=== PATIENT | male | born 1945 | race Caucasian/White ===

== ENCOUNTER → 2016-10-04 | Outpatient (CLI) | payer OTHER ==
[2015-09-21 08:53] VITALS: BP 118/79; PULSE 71
[~2016-10-04] MED LIST: ASPCH81X PO; BIMA0.01 OPB; BRIN1SUS OPB; CEPH500C2 PO; CLOTCRE33 TOP; DEXL60CA4 PO; FERR1TAB13 PO; HYDR-4330 PO; LCTX PO; NRN100 PO; PHEN-939 PO; PILO1SOL3 IO; POLY335019 PO; PSYL55.43 PO; SIMV40TA2 PO; TAMS0.4C38 PO; TIMO0.2528 OPL; ZOLP10TA6 PO
[2016-10-04 13:32] VITALS: BP 139/88; PULSE 77; TEMP 36.9; O2SAT 93
--- NOTE | 2016-10-04 18:11 | Radiation Oncology Follow-Up ---
Radiation Oncology Follow-Up Date of Visit Oct 04, 2016. Radiation Completion Date 03/12/13 Diagnosis (1) B-cell lymphoma Status: Resolved Onset Date: 12/01/2012 Permanent Comment: Pelvic pain Finding of soft tissue mass of the right pelvis, presacral region Status post fine-needle aspiration consistent with B-cell lymphoma Status post completion of radiation therapy 03/12/2013 received 4140 cGy Last Edited By: Eli Bagley on Sep 21, 2015 09:45 Interim History Mr. Boyer is a 71-year-old gentleman who presents with a B-cell lymphoma involving the presacral region treated with pelvic radiation therapy which completed in February 2013. The patient presents for follow-up evaluation. The patient continues to also follow with Dr. Edwin Teixeira. Currently, the patient is doing relatively well. He denies any significant urinary or rectal complaints. He has no issues otherwise. He states he will follow with Dr. Teixeira for 5 years and then plans to only follow with his primary care provider. Allergies Coded Allergies: Meloxicam (Unverified Allergy, Intermediate, PAIN IN STOMACH, 09/23/13) Uncoded Allergies: dockery (Adverse Reaction, Mild, GI SYMPTOMS, 02/10/13) Home Medications Scheduled Aspirin (Aspirin Chewable), 81 MG PO DAILY Bimatoprost (Lumigan), 1 DROP OPB HS Brinzolamide Oph (Azopt Oph), 1 DROP OPB TID Clotrimazole W/ Betamethasone (Lotrisone), 1 APPLN TOP BID Dexlansoprazole (Dexilant), 60 MG PO DAILYBB Ferrous Sulfate (Kp Ferrous Sulfate), 1 TAB PO DAILY Gabapentin (Gabapentin), 100 MG PO BID Pilocarpine Hcl (Isopto Carpine), 1 DROP IO QID Polyethylene Glycol 3350 (Miralax), 17 GM PO Q2D Psyllium (Metamucil Powder), 1 PACK PO DAILY Simvastatin (Zocor), 40 MG PO QPM Timolol Maleate 0.25% Oph (Timoptic 0.25% Oph), 1 DROP OPL DAILY Review of Systems Gastrointestinal: Symptoms: WNL Oral: Symptoms: No Problems Respiratory: Symptoms: WNL Other Respiratory: Just got over a cold Urinary: Symptoms: WNL Skin: Symptoms: No Problems Physical Exam Vital Signs Date Time Temp Pulse Resp B/P Pulse Ox O2 Delivery O2 Flow Rate FiO2 3/9/17 13:32 36.9 77 16 139/88 93 Pain: Side: Bilateral Patient Pain Scale: 0 - 10 Initial Pain Intensity: 0.0 General Appearance: WD/WN, no apparent distress Eyes: normal inspection ENT: normal ENT inspection, hearing grossly normal Neck: supple, no adenopathy Respiratory/Chest: chest non-tender, lungs clear, normal breath sounds, no respiratory distress Cardiovascular: regular rate, rhythm, no edema, no gallop, no JVD Abdomen: normal bowel sounds, non tender, soft, no organomegaly Extremities: normal range of motion, non-tender, normal inspection, no pedal edema Neurologic/Psychiatric: alert, oriented x 3 Skin: normal color, warm/dry, no rash Additional Studies EXAM EXAM: CT ABDOMEN /PELVIS WITHOUT IV CONTRAST WITHOUT ORAL DATE and TIME: 09/19/2016 10:46 am HISTORY CLINICAL INFORMATION: Urteral stone TECHNIQUE Multiple axial images are acquired of the abdomen and pelvis. Coronal and Sagittal reformats are provided. Oral Contrast: No oral contrast was administered. IV Contrast: No IV contrast was administered. Absence of intravenous contrast limits evaluation of visceral structures, vasculature, and other processes. COMPARISON PET-CT dated 12/24/2012. CT abdomen/pelvis dated 08/07/2012. FINDINGS LINES AND DEVICES: None. LOWER CHEST: HEART(visualized): Coronary artery calcification. LUNG BASES: Unremarkable. ABDOMEN/PELVIS: LIVER: Unremarkable. BILE DUCTS: Unremarkable. GALLBLADDER: Unremarkable. PANCREAS: Unremarkable. SPLEEN: Unremarkable. ADRENALS: Unremarkable. KIDNEYS/URETERS: - Right mid ureter 7 mm calculus without evidence of hydronephrosis. - Multiple bilateral nonobstructing renal calculi, largest 2 on the right measuring 5 mm. - 16 mm left renal cyst not significantly changed since 07/2012. BLADDER: Collapsed, thus limiting evaluation. BOWEL: Normal caliber. Appendix is within normal limits. LYMPH NODES: No pathologic morphology or enlargement. VESSELS: Atherosclerosis. REPRODUCTIVE ORGANS: Coarse prostatic calcifications. PERITONEUM/RETROPERITONEUM: Near complete resolution of previously noted right presacral soft tissue stranding in comparison to CT from August 07, 2012. ABDOMINAL WALL/SOFT TISSUES: Small bilateral fat containing inguinal hernias. BONES: Bilateral L5 pars defects with associated grade 1 anterolisthesis of L5 on S1. Multilevel degenerative changes of the visualized lumbar spine. IMPRESSION 1. Right mid ureteral stone measuring 7 mm. No evidence of hydronephrosis. 2. Multiple bilateral nonobstructing renal calculi Assessment & Plan Mr. Boyer is a 71-year-old gentleman with a B-cell lymphoma involving the presacral region treated with radiation therapy in February 2013. The patient presents for follow-up evaluation. Overall he is doing relatively well. He has no radiographic evidence of recurrence. He has no evidence of constitutional be symptoms. We are happy with his progress. He will continue to follow up with Dr. Teixeira. We will defer imaging studies to Dr. Teixeira. We would like to see him back in one more time for follow-up evaluation in one year. The patient was encouraged to call us with any questions or concerns or if he wanted to be seen earlier. Total Time In Follow-Up I spent 20 minutes examining and counseling the patient. I spent 15 minutes completing this note. Copy To Collin Crockett M.D.; Edwin Teixeira M.D.
== END | disposition home or self-care (01) ==
LOC: C.ONC 13:15
PROVIDERS: ATTEND Physician Assistant Medical
DX: Z08 Encounter for follow-up examination after completed treatment for malignant neoplasm (principal); Z92.3 Personal history of irradiation; Z85.72 Personal history of non-Hodgkin lymphomas

== ENCOUNTER 2016-10-25 10:19 | Inpatient (IN) | payer OTHER ==
[~2016-10-25] VITALS: Ht 172.7 cm; Wt 90.9 kg
[~2016-10-25 10:19] MED LIST changes: -CEPH500C2 PO; -HYDR-4330 PO; -LCTX PO; -PHEN-939 PO; -TAMS0.4C38 PO; -ZOLP10TA6 PO
[2016-10-25 12:27] VITALS: BP 142/75; PULSE 116; TEMP 36.8; O2SAT 94
[2016-10-25] MEDS ORDERED: ONDANSETRON INJ 2 MG/ML 2 ML VIAL IV PRN (12:30)
[2016-10-25] MEDS ORDERED: ACETAMINOPHEN 325 MG TAB PO PRN (12:30)
[2016-10-25 13:05] LABS: HEMATOCRIT 37.9 % (42-52); MEAN CELL VOLUME 85.7 fL (80-100); MEAN CORPUSCULAR HEMOGLOBIN 28.5 pg (25-34); MEAN CORPUSCULAR HGB CONC 33.2 g/dl (32-36); MEAN PLATELET VOLUME 9.3 fL (7.4-10.4); PLATELET COUNT 227 K/uL (130-400); RED BLOOD COUNT 4.42 M/uL (4.7-6.1); WHITE BLOOD COUNT 14.22 K/uL (4.8-10.8)
[2016-10-25] MEDS ORDERED: CEFTRIAXONE SOD INJ 2,000 MG in DEXTROSE 5% 50ML 50 ML IV SCH (13:30)
[2016-10-25] MEDS ORDERED: PIPERACILL/TAZOBAC CONSULT ACTIVE PRN (13:34)
[2016-10-25 13:37] VITALS: BP 142/75; PULSE 116; TEMP 36.8; Ht 172.7 cm; Wt 90.9 kg
[2016-10-25] MEDS ORDERED: HYDR-4330 PO (13:39)
[2016-10-25] MEDS ORDERED: PHEN-939 PO (13:39)
[2016-10-25] MEDS ORDERED: TAMS0.4C38 PO (13:39)
[2016-10-25 13:41] LABS: BLOOD UREA NITROGEN 13 mg/dl (7-18); BUN/CREATININE RATIO 10.8 (10-20); CALCIUM 8.6 mg/dl (8.5-10.1); CARBON DIOXIDE 28 mmol/L (21-32); CHLORIDE 103 mmol/L (98-107); GLUCOSE 125 mg/dl (70-99); POTASSIUM 3.9 mmol/L (3.5-5.1); SODIUM 139 mmol/L (136-145)
[2016-10-25] MEDS ORDERED: PATIENT'S HEIGHT AND/OR WEIGHT NEEDED SCH (13:45)
[2016-10-25] MEDS ORDERED: PHENAZOPYRIDINE HCL 100 MG TAB PO PRN (13:45)
[2016-10-25] MEDS ORDERED: POLYETHYLENE (MIRALAX) 17 GM PACK PO PRN (13:45)
--- NOTE | 2016-10-25 14:03 | Progress Note ---
Progress Note Date of Service Oct 25, 2016. Progress Note ATTENDING ADDENDUM care coordinated with LIUDMILA Blandon please refer to her notes for full details, I agree with her notes patient seen and examined, records reviewed by myself as well on exam, patient seen in good spirits, pleasant states he feels hungry denies chill, back pain, dysuria, abdominal pain, nausea/vomiting, hematuria denies chest pain, dyspnea, dizziness, palpitations no other symptoms VS noted and reviewed oriented x 3 , not in distress, speaks in sentences with no effort nor accessory muscle use normal rate, regular rhythm, no murmurs clear breath sounds bilaterally non distended, soft, nontender, no CVA tenderness no bipedal edema, erythema, warmth no neuro deficits WBC 14.2 Lactic acid 1.3 ASSESSMENT/PLAN> 71 year old male with history of ureteral calculus s/p Stent Placement 6 days ago, Non hodgkin's Lymphoma in Remission, presenting with positive urine and blood cultures drawn from [facility] yesterday. GRAM NEGATIVE SAM BACTEREMIA E COLI UTI IN THE SETTING OF RECENT URETERAL STENT PLACEMENT - meets criteria for sepsis lactic acid normal, normotensive - ff up cultures drawn from [facility] 10/24/16 repeat cultures during this admission - IV fluids empiric Zosyn IV for now - Urology consult HISTORY OF NON HODGKIN'S LYMPHOMA - in remission follows with Dr. Teixeira other diagnoses and plan of care as per LIUDMILA Blandon's notes Darien Jacinto MD
--- NOTE | 2016-10-25 14:17 | History and Physical ---
History & Physical Date & Time of Service: Oct 25, 2016 at 13:52 Chief Complaint: Blood Infection Primary Care Physician: Collin Crockett M.D. History of Present Illness 71 year old male referred to the hospital for direct admission by Dr. Herrmann from urology for bacteremia. On 10/19, patient underwent cystoscopy, lithotripsy , and right ureteral stent placement. Last evening patient developed chills and rigors. He was seen at [facility] where he found to be febrile and U/A consistent with UTI. He was given a dose of IV Rocephin and discharged home with a prescription for Keflex. Patient received a call this morning that he had an infection in his blood and needed to go to the hospital. Patient reports feeling significantly better since last evening. He still has some chills but rigors have resolved. He reports burning with urination. He had hematuria after his procedure last week however urine has cleared. He denies flank pain. No abdominal pain, nausea, vomiting, or diarrhea. He denies chest pain and shortness of breath. No lightheadedness, dizziness, diaphoresis, or syncopal events. At the time of my exam, patient is resting in bed in no acute distress. Past Medical/Surgical History Medical Problems: (1) B-cell lymphoma Permanent Comment: Pelvic pain Finding of soft tissue mass of the right pelvis, presacral region Status post fine-needle aspiration consistent with B-cell lymphoma Status post completion of radiation therapy 03/12/2013 received 4140 cGy Status: Resolved (2) Dyslipidemia Status: Chronic (3) GERD (gastroesophageal reflux disease) Status: Chronic (4) Renal calculi Status: Chronic Surgical Problems: (1) History of cataract surgery Status: Chronic Family History FH: CAD (coronary artery disease) FATHER ( in his 40s from [place]) MOTHER ( in her 60s from [place]) Social History Smoking Status: Former Smoker Alcohol Use: none Immunizations History of Influenza Vaccine: Yes Influenza Vaccine Date: Apr 19, 2016 History of Tetanus Vaccine?: Yes Tetanus Immunization Date: Jan 25, 2016 History of Pneumococcal: Yes Pneumococcal Date: Jun 10, 2015 Allergies Coded Allergies: Meloxicam (Unverified Allergy, Intermediate, PAIN IN STOMACH, 09/23/13) Uncoded Allergies: dockery (Adverse Reaction, Mild, GI SYMPTOMS, 02/10/13) Home Medications Scheduled Aspirin (Aspirin Chewable), 81 MG PO DAILY Bimatoprost (Lumigan), 1 DROP OPB HS Brinzolamide Oph (Azopt Oph), 1 DROP OPB TID Dexlansoprazole (Dexilant), 60 MG PO DAILYBB Ferrous Sulfate (Kp Ferrous Sulfate), 1 TAB PO DAILY Gabapentin (Gabapentin), 100 MG PO TID Pilocarpine Hcl (Isopto Carpine), 1 DROP IO QID Psyllium (Metamucil Powder), 1 PACK PO DAILY Simvastatin (Zocor), 40 MG PO QPM Tamsulosin Hcl (Flomax), 0.4 MG PO DAILY Timolol Maleate 0.25% Oph (Timoptic 0.25% Oph), 1 DROP OPL DAILY Scheduled PRN Clotrimazole W/ Betamethasone (Lotrisone), 1 APPLN TOP BID PRN for Itching Hydrocodone-Acetaminophen (Lortab 5-325 mg), 1 TAB PO Q6H PRN for Pain Phenazopyridine Hcl (Pyridium), 1 TAB PO TID PRN for Pain Polyethylene Glycol 3350 (Miralax), 17 GM PO DAILY PRN for Constipation Review of Systems 10 point review of systems was completed with the pertinent positives and negatives noted per the HPI Physical Exam Vital Signs Date Time Temp Pulse Resp B/P Pulse Ox O2 Delivery O2 Flow Rate FiO2 10/25/16 13:37 36.8 116 20 142/75 Room Air 10/25/16 12:27 36.8 116 20 142/75 94 Room Air General Appearance: no apparent distress Head: normocephalic Eyes: normal inspection ENT: hearing grossly normal Neck: supple, no JVD Respiratory/Chest: lungs clear, normal breath sounds, no respiratory distress Cardiovascular: regular rate, rhythm, no edema, normal peripheral pulses Abdomen/GI: normal bowel sounds, non tender, soft Back: no CVA tenderness Extremities/Musculoskelatal: normal inspection, no calf tenderness Neurologic/Psych: no motor/sensory deficits, alert, normal mood/affect, oriented x 3 Skin: normal color, warm/dry Diagnostics Laboratory Results Results Past 24 Hours Test 10/25/16 12:22 10/25/16 12:53 Range/Units White Blood Count 14.22 4.8-10.8 K/uL Red Blood Count 4.42 4.7-6.1 M/uL Hemoglobin 12.6 14.0-18.0 g/dL Hematocrit 37.9 42-52 % Mean Corpuscular Volume 85.7 80-100 fL Mean Corpuscular Hemoglobin 28.5 25-34 pg Mean Corpuscular Hemoglobin Concent 33.2 32-36 g/dl RDW Standard Deviation 47.2 36.4-46.3 fL RDW Coefficient of Variation 14.9 11.5-14.5 % Platelet Count 227 130-400 K/uL Mean Platelet Volume 9.3 7.4-10.4 fL Sodium Level 139 136-145 mmol/L Potassium Level 3.9 3.5-5.1 mmol/L Chloride Level 103 98-107 mmol/L Carbon Dioxide Level 28 21-32 mmol/L Anion Gap 8.0 3-11 mmol/L Blood Urea Nitrogen 13 7-18 mg/dl Creatinine 1.20 0.60-1.40 mg/dl Estimated GFR () 69.6 Estimated GFR (Non- 60.1 BUN/Creatinine Ratio 10.8 10-20 Random Glucose 125 70-99 mg/dl Lactic Acid Level 1.3 0.4-2.0 mmol/L Calcium Level 8.6 8.5-10.1 mg/dl Microbiology Results 10/25/16 Blood Culture, Received Pending 10/25/16 Blood Culture, Received Pending 10/25/16 Urine Culture, Ordered Pending Impression Assessment and Plan SEPSIS DUE TO GRAM NEGATIVE BACTEREMIA - directly admitted to med/surg - patient underwent cystoscopy, lithotripsy, and right ureteral stent placement on 10/19 for renal calculi; developed chills and rigors last night, went to [facility] ER and was febrile, was given IV Rocephin and discharged home with prescription for Keflex. Blood cultures positive today for gram negative rods and urine culture growing E. Coli (no sensitivities) - I spoke with the micro lab at [facility] who are to fax cultures once finalized - today patient is tachycardic with WBC 14K; afebrile, BP stable, lactic acid normal - will place on Zosyn and adjust per final culture results - IVF - redraw blood and urine cultures - urology and infectious disease consults HLD - continue statin GERD - continue PPI DVT PROPHYLAXIS - SCDs in the event patient needs an invasive procedure CODE STATUS - Patient is a full code as per my discussion with him. DISPO - In my clinical judgment this beneficiary meets acute admission criteria, established by [facility], that includes being hospitalized through two midnights. Advanced Directives Existing Living Will: Yes Existing Power of Cad Administrator: Yes VTE Prophylaxis VTE Risk Assessment Done? Y/N: Yes Risk Level: Moderate
[2016-10-25] MEDS: GABAPENTIN 100 MG CAP PO SCH ×2 (14:29→22:47)
[2016-10-25] MEDS: SODIUM CHLORIDE 0.9% 1000ML 1,000 ML IV SCH ×2 (14:30→22:44)
[2016-10-25] MEDS ORDERED: PIPERACILL/TAZOBAC IV 3.375 GM in DEXTROSE 5% 100ML IV ONE (15:00)
--- NOTE | 2016-10-25 15:24 | Progress Note ---
Progress Note Date of Service Oct 25, 2016. Progress Note ID Consult Dictated #[id number] A/P: 1. Bacteremia/uti 2. Leukocytosis -Continue zosyn, await cultures -will follow, thank you
--- NOTE | 2016-10-25 16:00 | INFECT. DISEASE CONSULTATION ---
DATE OF CONSULTATION: 10/25/2016 REQUESTING PHYSICIAN: Rafael Mary MD HISTORY OF PRESENT ILLNESS: This is a 71-year-old gentleman who was admitted for direct admission by urology after he was noted to have positive cultures at an outside facility. He had undergone cystoscopy, lithotripsy, and a ureteral stent placement at [facility] on October 19. He had tolerated this procedure well; however, one day ago, he developed acute onset of chills and rigors. He went to [facility] Emergency Room. He was found reportedly to have fever and a positive UA. He was given a 1 time dose of Rocephin and discharged from the Emergency Room on oral Keflex. He did receive a call this morning he states from his urologist that blood cultures obtained in the Emergency Room at [facility] were in fact positive and he was instructed to go to the hospital. He did present here as this was per his urologist. He states he was planning to have his stent removed tomorrow. He was placed empirically on antibiotics and repeat urine and blood cultures are pending. He is currently on Zosyn and is tolerating this well. He has not had any documented fevers. He states overall he is feeling significantly better compared to yesterday and has not had any episodes of chills or rigors since hospitalization here; however, he states he does feel cold. He denies any chest pain, cough, shortness of breath, nausea, vomiting, diarrhea or abdominal pain. He has no back pain. He has no urinary complaints. He is eating lunch on my exam. All remaining review of systems is reviewed and is negative except what is noted above. PAST MEDICAL HISTORY: Significant for B cell lymphoma status post radiation, dyslipidemia, GERD, and renal calculi. PAST SURGICAL HISTORY: Significant for cataract surgery and recent cystoscopy and stent placement on October 19. FAMILY HISTORY: Noncontributory. SOCIAL HISTORY: Significant for a history of tobacco use. ALLERGIES: INCLUDE MELOXICAM. CURRENT MEDICATIONS: Include aspirin, Metamucil, Flomax, eyedrops, iron, Protonix, Zocor, Zosyn, Neurontin, Pyridium, MiraLax, Tylenol and Zofran. PHYSICAL EXAMINATION: VITAL SIGNS: He is afebrile, pulse 116, respiratory rate 20, blood pressure 142/75, and oxygen saturation is 94% on room air. GENERAL: He is awake, alert and oriented x3. He is in no acute distress. HEENT: Mucous membranes are moist. Extraocular muscles are intact. HEART: Regular. LUNGS: Clear. ABDOMEN: Soft, nontender, and nondistended. There is no back tenderness. EXTREMITIES: Lower extremities are without edema. SKIN: Without rash. LABORATORY STUDIES: CBC today reveals a white blood cell count of 14.2, hemoglobin 12.6, and platelets are 227. Chemistry panel reveals sodium of 139, potassium 3.9, chloride 103, bicarbonate 28, BUN 13, creatinine 1.2, and glucose is 125. Lactic acid is 1.3. Urinalysis is pending. Blood and urine cultures are pending. There is no imaging to review. ASSESSMENT AND PLAN: Bacteremia, likely secondary to recent lithotripsy and stent placement. He will remain on Zosyn therapy pending the results of blood cultures done both at [facility] and here as well. UA and urine culture are pending. Urology will be consulted. We will follow along with you. Thank you for this consultation.
[2016-10-25] MEDS: BRINZOLAMIDE (AZOPT) OPS 10 ML BTL OPB SCH ×2 (16:13→22:48)
[2016-10-25 17:02] VITALS: BP 147/80; PULSE 123; TEMP 37.4; O2SAT 92
[2016-10-25] MEDS: PILOCARPINE HCL 1% OP SOLN 15 ML BTL OPR SCH ×2 (18:35→22:49)
[2016-10-25 19:01] LABS: MANUAL MICROSCOPIC REQUIRED? NO; REVIEW REQ? NO; URINE APPEARANCE CLOUDY (CLEAR); URINE BILIRUBIN NEG (NEG); URINE COLOR YELLOW; URINE EPITHELIAL CELL AUTO >30 /lpf (0-5); URINE NITRITE NEG (NEG); URINE PH >= 9.0 (4.5-7.5); URINE SPECIFIC GRAVITY 1.017 (1.000-1.030); UROBILINOGEN NEG (NEG)
[2016-10-25 19:03] LABS: SULFASALICYLIC ACID POS (NEG)
--- NOTE | 2016-10-25 20:14 | Urology Consultation ---
History General Date of Service: Oct 25, 2016. Chief Complaint: uti with bacteremia Primary Care Physician: Collin Crockett M.D. Pt seen a urologist before?: Yes If yes, why?: stones History of Present Illness I am asked by Susana Blandon PA-C to evaluate and treat patient for uti with bacteremia. He is POD # 6 s/p a seemingly uneventful right ureteroscopy laser lithotripsy basket stone extraction and stent placement. He had initially an uneventful recovery. His pre-op urine and intra-op findings were not suggestive of urine infection. He developed sudden rigors and profound weakness yesterday. He was treated and released from [facility] ER last night. There he had fever leukocytosis, tachycardia, and a dirty urine. he was given 1 g rocephin and sent home. His blood and urine cultures returned + for e coli this am and we then routed him here for direct admission. He has been feeling a bit better since rocephin and much better since the additional iv fluids and zosyn today. He has some mild dysuria now but no specific flank pain. He feels like he is emptying fine. He still feels very weak. Laboratory Results Past 24 Hours Test 10/25/16 12:53 10/25/16 18:35 Range/Units White Blood Count 14.22 4.8-10.8 K/uL Red Blood Count 4.42 4.7-6.1 M/uL Hemoglobin 12.6 14.0-18.0 g/dL Hematocrit 37.9 42-52 % Mean Corpuscular Volume 85.7 80-100 fL Mean Corpuscular Hemoglobin 28.5 25-34 pg Mean Corpuscular Hemoglobin Concent 33.2 32-36 g/dl RDW Standard Deviation 47.2 36.4-46.3 fL RDW Coefficient of Variation 14.9 11.5-14.5 % Platelet Count 227 130-400 K/uL Mean Platelet Volume 9.3 7.4-10.4 fL Sodium Level 139 136-145 mmol/L Potassium Level 3.9 3.5-5.1 mmol/L Chloride Level 103 98-107 mmol/L Carbon Dioxide Level 28 21-32 mmol/L Anion Gap 8.0 3-11 mmol/L Blood Urea Nitrogen 13 7-18 mg/dl Creatinine 1.20 0.60-1.40 mg/dl Estimated GFR () 69.6 Estimated GFR (Non- 60.1 BUN/Creatinine Ratio 10.8 10-20 Random Glucose 125 70-99 mg/dl Lactic Acid Level 1.3 0.4-2.0 mmol/L Calcium Level 8.6 8.5-10.1 mg/dl Urine Color YELLOW Urine Appearance CLOUDY CLEAR Urine pH >= 9.0 4.5-7.5 Urine Specific [place] 1.017 1.000-1.030 Urine Protein 2+ NEG Urine Glucose (UA) NEG NEG Urine Ketones NEG NEG Urine Occult Blood 3+ NEG Urine Nitrite NEG NEG Urine Bilirubin NEG NEG Urine Urobilinogen NEG NEG Urine Leukocyte Esterase SMALL NEG Urine WBC (Auto) >30 0-5 /hpf Urine RBC (Auto) >30 0-4 /hpf Urine Hyaline Casts (Auto) 1-5 0-5 /lpf Urine Epithelial Cells (Auto) >30 0-5 /lpf Urine Bacteria (Auto) NEG NEG Microbiology Results 10/25/16 Blood Culture, Received Pending 10/25/16 Blood Culture, Received Pending 10/25/16 Urine Culture, Received Pending Labs were reviewed and are within normal limits unless listed below. Labs are available in the chart and at [facility] Past History cancer - lymphoma, other (lymphoma) Family History FH: CAD (coronary artery disease) FATHER ( in his 40s from [place]) MOTHER ( in her 60s from [place]) Social History Hx Tobacco Use In Past Year?: No Smoking: quit greater than 1 year Housing status: lives with family Immunizations History of Influenza Vaccine: Yes Influenza Vaccine Date: Apr 19, 2016 History of Tetanus Vaccine?: Yes Tetanus Immunization Date: Jan 25, 2016 History of Pneumococcal: Yes Pneumococcal Date: Jun 10, 2015 Allergies Coded Allergies: Meloxicam (Unverified Allergy, Intermediate, PAIN IN STOMACH, 09/23/13) Uncoded Allergies: dockery (Adverse Reaction, Mild, GI SYMPTOMS, 02/10/13) Medications Home Medications: Home Meds and Scripts Medications Dose Route/Sig Max Daily Dose Days Date Category Lortab 5-325 mg (Hydrocodone-Acetaminophen) 1 Tab Tab 1 Tab PO Q6H PRN 10/25/16 Reported Flomax (Tamsulosin Hcl) 0.4 Mg Cap 0.4 Mg PO DAILY 10/25/16 Reported Pyridium (Phenazopyridine Hcl) 100 Mg Tab 1 Tab PO TID PRN 3 10/25/16 Reported Lotrisone (Clotrimazole W/ Betamethasone) 1 Cre Cre 1 Appln TOP BID PRN 7 10/04/16 Reported Isopto Carpine (Pilocarpine Hcl) 1 % Brinda 1 Drop IO QID 10/04/16 Reported Kp Ferrous Sulfate (Ferrous Sulfate) 325 Mg Tab 1 Tab PO DAILY 30 10/04/16 Reported Dexilant (Dexlansoprazole) 60 Mg Cap 60 Mg PO DAILYBB 09/21/15 Reported Miralax (Polyethylene Glycol 3350) 1 Pow Pow 17 Gm PO DAILY PRN 09/21/15 Reported Metamucil Powder (Psyllium Hydrophilic Mucilloid) Powd 1 Pack PO DAILY 09/21/15 Reported Gabapentin 100 Mg Cap 100 Mg PO TID 09/21/15 Reported Lumigan (Bimatoprost) 0.01 % Brinda 1 Drop OPB HS 01/22/13 Reported Aspirin Chewable (Aspirin) 81 Mg Chew 81 Mg PO DAILY 01/22/13 Reported Azopt Oph (Brinzolamide) 1 % Delia 1 Drop OPB TID 01/22/13 Reported Zocor (Simvastatin) 40 Mg Tab 40 Mg PO QPM 01/22/13 Reported Timoptic 0.25% Oph (Timolol Maleate) Soln 1 Drop OPL DAILY 01/22/13 Reported Inpatient Medications: Current Inpatient Medications Medications (Trade) Dose Ordered Sig/Jaimie Route Start Time Stop Time Status Last Admin Dose Admin Acetaminophen (Tylenol Tab) 650 mg Q4H PRN PO 10/25/16 12:30 11/24/16 12:29 Ondansetron HCl (Zofran Inj) 4 mg Q6H PRN IV 10/25/16 12:30 11/24/16 12:29 Piperacillin Sod/ Tazobactam Sod 1 ea 1 ea UD PRN N/A 10/25/16 13:34 11/24/16 13:33 Sodium Chloride (Nss 1000ml) 1,000 ml @ 125 mls/hr Q8H IV 10/25/16 13:30 11/24/16 13:29 10/25/16 14:30 125 MLS/HR Aspirin (Ecotrin Tab) 81 mg DAILY PO 10/26/16 09:00 11/25/16 08:59 Brinzolamide (Azopt) 1 drops TID OPB 10/25/16 14:45 11/24/16 14:44 10/25/16 16:13 1 DROPS Gabapentin (Neurontin Cap) 100 mg TID PO 10/25/16 14:00 11/24/16 13:59 10/25/16 14:29 100 MG Phenazopyridine HCl (Pyridium Tab) 100 mg TID PRN PO 10/25/16 13:45 11/24/16 13:44 Pilocarpine HCl (Isopto Carpine 1% Oph Soln) 1 drops QID OPR 10/25/16 17:00 11/24/16 16:59 10/25/16 18:35 1 DROPS Psyllium Hydrophilic Mucilloid (Metamucil Powder) 1 pkt DAILY PO 10/26/16 09:00 11/25/16 08:59 Simvastatin (Zocor Tab) 40 mg QPM PO 10/25/16 21:00 11/24/16 20:59 Tamsulosin HCl (Flomax Cap) 0.4 mg DAILY PO 10/26/16 09:00 11/25/16 08:59 Timolol Maleate (Timoptic 0.25% Oph Soln) 1 drops DAILY OPL 10/26/16 09:00 11/25/16 08:59 Bimatoprost (Lumigan 0.01%) 1 drops HS OPB 10/25/16 21:00 11/24/16 20:59 Pantoprazole Sodium (Protonix Tab) 40 mg DAILYBB PO 10/26/16 06:30 11/25/16 06:29 Ferrous Sulfate (Feosol Tab) 325 mg DAILY PO 10/26/16 09:00 11/25/16 08:59 Polyethylene 17 gm 17 gm DAILY PRN PO 10/25/16 13:45 11/24/16 13:44 Piperacillin Sod/ Tazobactam Sod/ Dextrose (Zosyn Iv/D5 100ml) 115 ml @ 28.75 mls/ hr Q8H IV 10/25/16 20:00 11/08/16 19:59 Review of Systems Review of Systems Constitutional: + chills, + fever Neurological: + dizzy Endocrine: + tired/sluggish, + too cold Gastrointestinal: + nausea Cardiovascular: No chest pain, No palpitations Respiratory: No chronic cough, No shortness of breath Male : + frequent urination, + infections, + kidney stones, + nocturia more than once/night, + painful urination Physical Exam Vital Signs: Vital Signs Past 12 Hours Date Time Temp Pulse Resp B/P Pulse Ox O2 Delivery O2 Flow Rate FiO2 10/25/16 17:02 37.4 123 20 147/80 92 Room Air 10/25/16 13:37 36.8 116 20 142/75 Room Air 10/25/16 12:27 36.8 116 20 142/75 94 Room Air Physical Exam: General Appearance: WD/WN, no apparent distress, + obese Eyes: bilateral eyes normal inspection ENT: hearing grossly normal Neck: no adenopathy Respiratory/Chest: normal breath sounds, no respiratory distress, no accessory muscle use Extremities: non-tender, normal inspection, no pedal edema, no calf tenderness Neurologic/Psychiatric: alert, normal mood/affect, oriented x 3 Skin: normal color, warm/dry, no rash Assessment & Plan Assessment & Plan uti with bacteremia seems to be responding nicely to antibiotics does not appear toxic. Await culture results from ADAM Brennan then tailor antibiotics. Will plan to remove stent just prior to discharge this weekend. Will do at bedside, no need for fasting. I suspect he has a post-op infection from the instrumentation as I do not believe his urine was infected pre-op or intra-op.
[2016-10-25] MEDS: PIPERACILL/TAZOBAC IV 3.375 GM in DEXTROSE 5% 100ML IV SCH (22:43)
[2016-10-25] MEDS: BIMATOPROST 0.01% OP SOLN 2.5 ML BTL OPB SCH (22:48)
[2016-10-25] MEDS: SIMVASTATIN 40 MG TAB PO SCH (22:49)
[2016-10-25 23:23] VITALS: BP 159/87; PULSE 117; TEMP 37.6; O2SAT 92
[2016-10-26] MEDS: PIPERACILL/TAZOBAC IV 3.375 GM in DEXTROSE 5% 100ML IV SCH (05:11)
[2016-10-26] MEDS: SODIUM CHLORIDE 0.9% 1000ML 1,000 ML IV SCH ×3 (05:11→21:52)
[2016-10-26 06:17] LABS: HEMATOCRIT 35.9 % (42-52); MEAN CELL VOLUME 86.1 fL (80-100); MEAN CORPUSCULAR HEMOGLOBIN 28.3 pg (25-34); MEAN CORPUSCULAR HGB CONC 32.9 g/dl (32-36); MEAN PLATELET VOLUME 9.6 fL (7.4-10.4); PLATELET COUNT 209 K/uL (130-400); RED BLOOD COUNT 4.17 M/uL (4.7-6.1); WHITE BLOOD COUNT 12.31 K/uL (4.8-10.8)
[2016-10-26] MEDS: PANTOprazole SOD 40 MG TAB PO SCH (06:24)
[2016-10-26 06:54] LABS: BUN/CREATININE RATIO 8.8 (10-20); CREATININE 1.2 mg/dl (0.60-1.40); POTASSIUM 3.8 mmol/L (3.5-5.1)
--- NOTE | 2016-10-26 07:26 | Clinical Documentation Query ---
CLINICAL DOCUMENTATION QUERY Dr. BLANK, In your clinical opinion is this patient being managed for: ( ) Sepsis/ UTI due to recent lithotripsy and ureteral stent placement ( ) Other explanation of clinical findings (Please Explain) ( ) Unable to determine (Please Define) ( ) Need to Discuss ( ) Not Agree The medical record reflects the following clinical findings, treatment, and risk factors. Clinical Indicators:71 yo male presenting with sepsis from E coli UTI. ID consult suggests that this is likely secondary to recent lithotripsy and ureteral stent. Urology consult indicates the pt's urine was not infected preop or intraop Treatment: plan for stent removal, IV zosyn, urology and ID consults, IV fluids Risk Factors: recent lithotripsy and stent placement Please clarify and document your clinical opinion in the progress notes and discharge summary. Terms such as "probable", "suspected", "likely", "questionable", "possible", or "still to be ruled out" are acceptable. IF IN AGREEMENT, YOU MUST DOCUMENT ABOVE DIAGNOSTIC STATEMENT IN DAILY PROGRESS NOTES AND DISCHARGE SUMMARY. This document is not part of the patient's record. Thank You, Eneida Jiménez RN [phone]
[2016-10-26] MEDS: GABAPENTIN 100 MG CAP PO SCH ×3 (08:10→21:53)
[2016-10-26] MEDS: FERROUS SULFATE 325 MG TAB PO SCH (08:10)
[2016-10-26] MEDS: TAMSULOSIN HCL 0.4 MG CAP PO SCH (08:10)
[2016-10-26] MEDS: PSYLLIUM 58.6% PWD PACK S\\F PO SCH (08:11)
[2016-10-26] MEDS: TIMOLOL MALEATE 0.25% OP SOLN 5 ML BTL OPL SCH (08:11)
[2016-10-26] MEDS: ASPIRIN 81 MG ECTAB PO SCH (08:11)
[2016-10-26] MEDS: BRINZOLAMIDE (AZOPT) OPS 10 ML BTL OPB SCH ×3 (08:11→21:53)
[2016-10-26] MEDS: PILOCARPINE HCL 1% OP SOLN 15 ML BTL OPR SCH ×4 (08:12→21:53)
[2016-10-26 08:27] VITALS: BP 118/82; PULSE 102; TEMP 37; O2SAT 92
[2016-10-26 09:48] VITALS: O2SAT 92
--- NOTE | 2016-10-26 11:33 | Progress Note ---
Subjective Date of Service: Oct 26, 2016. Subjective Pt evaluation today including: conversation w/ patient, physical exam, chart review, lab review pt seen in follow up, resting comfortably. no complaints. no fevers, denies any additional episodes of chills/rigors. no abd pain, no gu complaints. blood and urine cultures pending. UA with > 30 wbc and no missy. Did receive a one time dose of ctx at [facility]. tolerating zosyn, tmax 37.6, asymptomatic. Received call from pharmacy, [facility] pt with culture at [facility] is urias sensitive E. coli, requesting change in abx. Pt was seen by urology, will have stent removal done at bedside prior to d/c. All remaining ros reviewed and are negative. wbc improving, 12 today. Objective Vital Signs Date Time Temp Pulse Resp B/P Pulse Ox O2 Delivery O2 Flow Rate FiO2 10/26/16 09:48 92 Room Air 10/26/16 08:27 37.0 102 16 118/82 92 Room Air 10/26/16 08:00 Room Air 10/26/16 00:00 Room Air 10/25/16 23:23 37.6 117 20 159/87 92 Room Air 10/25/16 17:02 37.4 123 20 147/80 92 Room Air 10/25/16 16:00 Room Air 10/25/16 13:37 36.8 116 20 142/75 Room Air 10/25/16 12:27 36.8 116 20 142/75 94 Room Air Physical Exam General Appearance: WD/WN, no apparent distress Eyes: normal inspection Neck: supple Respiratory/Chest: lungs clear, normal breath sounds, no respiratory distress Cardiovascular: regular rate, rhythm, no edema Abdomen: non tender, soft Extremities: non-tender, normal inspection, no pedal edema, no calf tenderness Neurologic/Psychiatric: alert, oriented x 3 Skin: normal color Laboratory Results Last 24 Hours Test 10/25/16 12:53 10/25/16 18:35 10/26/16 05:35 White Blood Count 14.22 K/uL 12.31 K/uL Red Blood Count 4.42 M/uL 4.17 M/uL Hemoglobin 12.6 g/dL 11.8 g/dL Hematocrit 37.9 % 35.9 % Mean Corpuscular Volume 85.7 fL 86.1 fL Mean Corpuscular Hemoglobin 28.5 pg 28.3 pg Mean Corpuscular Hemoglobin Concent 33.2 g/dl 32.9 g/dl RDW Standard Deviation 47.2 fL 48.1 fL RDW Coefficient of Variation 14.9 % 15.1 % Platelet Count 227 K/uL 209 K/uL Mean Platelet Volume 9.3 fL 9.6 fL Sodium Level 139 mmol/L 138 mmol/L Potassium Level 3.9 mmol/L 3.8 mmol/L Chloride Level 103 mmol/L 105 mmol/L Carbon Dioxide Level 28 mmol/L 25 mmol/L Anion Gap 8.0 mmol/L 8.0 mmol/L Blood Urea Nitrogen 13 mg/dl 11 mg/dl Creatinine 1.20 mg/dl 1.20 mg/dl Estimated GFR () 69.6 69.6 Estimated GFR (Non- 60.1 60.1 BUN/Creatinine Ratio 10.8 8.8 Random Glucose 125 mg/dl 117 mg/dl Lactic Acid Level 1.3 mmol/L Calcium Level 8.6 mg/dl 8.0 mg/dl Urine Color YELLOW Urine Appearance CLOUDY Urine pH >= 9.0 Urine Specific [place] 1.017 Urine Protein 2+ Urine Glucose (UA) NEG Urine Ketones NEG Urine Occult Blood 3+ Urine Nitrite NEG Urine Bilirubin NEG Urine Urobilinogen NEG Urine Leukocyte Esterase SMALL Urine WBC (Auto) >30 /hpf Urine RBC (Auto) >30 /hpf Urine Hyaline Casts (Auto) 1-5 /lpf Urine Epithelial Cells (Auto) >30 /lpf Urine Bacteria (Auto) NEG Est Creatinine Clear Calc Drug Dose 60.9 ml/min Assessment and Plan (1) Gram negative septicemia Assessment & Plan: reported urias sensitive E. coli, will change to ctx 2 g daily. pt is to have stent removal prior to d/c. will need 14 days abx post stent removal. continue ctx for now and can change to keflex 500mg tid upon d/c to complete 14 days. (2) Leukocytosis Assessment & Plan: improving. (3) Fever (4) Renal calculi
[2016-10-26] MEDS: CEFTRIAXONE SOD INJ 2,000 MG in DEXTROSE 5% 50ML 50 ML IV SCH (11:48)
[2016-10-26 16:05] VITALS: O2SAT 92
[2016-10-26 16:09] VITALS: BP 135/78; PULSE 104; TEMP 37.4; O2SAT 92
--- NOTE | 2016-10-26 18:41 | Progress Note ---
Internal Med Progress Note Date of Service: Oct 26, 2016. Provider Documentation: SUBJECTIVE: resting comfortably afebrile denies any abdominal pain today no nausea no sob OBJECTIVE: Vital Signs-as noted below Exam: General-alert and oriented x 3 ENT-normal hearing Neck-no neck masses Lungs-cta b/l no wheezing no crackles Heart-s1 and s2 heard regular rate and rhythm no murmurs' Abdomen-soft bowel sounds present no abdominal discomfort no distension Extremities-no edema no erythema Neuro-alert and awake moves extremities Lab data as noted below. ASSESSMENT & PLAN: SEPSIS DUE TO GRAM NEGATIVE BACTEREMIA patient recently underwent cystoscopy, lithotripsy, and right ureteral stent placement on 10/19 for renal calcul, developed chills and rigors on 10/24/16 went to [facility] ER and was febrile, was given IV Rocephin and discharged home with prescription for Keflex but Blood cultures were positive today for gram negative rods and urine culture growing E. Coli (no sensitivities) - currently on iv zosyn await final cx from [facility] urology on board and plan to teke out stent prior to discharge. on iv fluids close monitor HLD om statin GERD PPI DVT PROPHYLAXIS SCDs for now. CODE STATUS full DISPO to be determined Vital Signs: Date Time Temp Pulse Resp B/P Pulse Ox O2 Delivery O2 Flow Rate FiO2 10/26/16 16:09 37.4 104 20 135/78 92 Room Air 10/26/16 09:48 92 Room Air 10/26/16 08:27 37.0 102 16 118/82 92 Room Air 10/26/16 08:00 Room Air 10/26/16 00:00 Room Air 10/25/16 23:23 37.6 117 20 159/87 92 Room Air Lab Results: Results Past 24 Hours Test 10/26/16 05:35 Range/Units White Blood Count 12.31 4.8-10.8 K/uL Red Blood Count 4.17 4.7-6.1 M/uL Hemoglobin 11.8 14.0-18.0 g/dL Hematocrit 35.9 42-52 % Mean Corpuscular Volume 86.1 80-100 fL Mean Corpuscular Hemoglobin 28.3 25-34 pg Mean Corpuscular Hemoglobin Concent 32.9 32-36 g/dl RDW Standard Deviation 48.1 36.4-46.3 fL RDW Coefficient of Variation 15.1 11.5-14.5 % Platelet Count 209 130-400 K/uL Mean Platelet Volume 9.6 7.4-10.4 fL Sodium Level 138 136-145 mmol/L Potassium Level 3.8 3.5-5.1 mmol/L Chloride Level 105 98-107 mmol/L Carbon Dioxide Level 25 21-32 mmol/L Anion Gap 8.0 3-11 mmol/L Blood Urea Nitrogen 11 7-18 mg/dl Creatinine 1.20 0.60-1.40 mg/dl Est Creatinine Clear Calc Drug Dose 60.9 ml/min Estimated GFR () 69.6 Estimated GFR (Non- 60.1 BUN/Creatinine Ratio 8.8 10-20 Random Glucose 117 70-99 mg/dl Calcium Level 8.0 8.5-10.1 mg/dl
[2016-10-26] MEDS: SIMVASTATIN 40 MG TAB PO SCH (21:53)
[2016-10-26] MEDS: BIMATOPROST 0.01% OP SOLN 2.5 ML BTL OPB SCH (21:54)
[2016-10-26 22:31] VITALS: TEMP 36.9
[2016-10-27 00:33] VITALS: BP 119/73; PULSE 97; TEMP 38.1; O2SAT 92
[2016-10-27] MEDS: SODIUM CHLORIDE 0.9% 1000ML 1,000 ML IV SCH (05:07)
[2016-10-27] MEDS: PANTOprazole SOD 40 MG TAB PO SCH (05:07)
[2016-10-27 07:35] LABS: BASO % 0.3 %; BASO ABS # 0.02 K/uL (0-0.2); COMPLETE YES; EOS % 0.9 %; HEMATOCRIT 35.6 % (42-52); IG% 0.3 %; LYMPH % 5.8 %; LYMPH ABS # 0.45 K/uL (1.2-3.4); MEAN CELL VOLUME 85.4 fL (80-100); MEAN CORPUSCULAR HEMOGLOBIN 27.3 pg (25-34); MONO % 12.4 %; NEUT % 80.3 %; PLATELET COUNT 194 K/uL (130-400); RED BLOOD COUNT 4.17 M/uL (4.7-6.1); WHITE BLOOD COUNT 7.76 K/uL (4.8-10.8)
[2016-10-27 08:05] LABS: BUN/CREATININE RATIO 8.4 (10-20); CALCIUM 8.4 mg/dl (8.5-10.1); MAGNESIUM 2.4 mg/dl (1.8-2.4); POTASSIUM 4.2 mmol/L (3.5-5.1)
[2016-10-27] MEDS: BRINZOLAMIDE (AZOPT) OPS 10 ML BTL OPB SCH (08:46)
[2016-10-27] MEDS: TIMOLOL MALEATE 0.25% OP SOLN 5 ML BTL OPL SCH (08:46)
[2016-10-27] MEDS: GABAPENTIN 100 MG CAP PO SCH (08:47)
[2016-10-27] MEDS: ASPIRIN 81 MG ECTAB PO SCH (08:47)
[2016-10-27] MEDS: PILOCARPINE HCL 1% OP SOLN 15 ML BTL OPR SCH ×2 (08:47→11:51)
[2016-10-27] MEDS: TAMSULOSIN HCL 0.4 MG CAP PO SCH (08:47)
[2016-10-27] MEDS: FERROUS SULFATE 325 MG TAB PO SCH (08:47)
[2016-10-27] MEDS: PSYLLIUM 58.6% PWD PACK S\\F PO SCH (08:47)
--- NOTE | 2016-10-27 11:49 | Progress Note ---
Subjective Date of Service: Oct 27, 2016. Subjective Pt evaluation today including: conversation w/ patient, physical exam, chart review, lab review Voiding: no voiding problems Patient improving had a temp spike to 100 overnight and some sweats once it broke. Voiding fine. on ceftriaxone the urine and blood is a urias sensitive e coli. he would like to go home. I explained stent removal and he signed consent. Review of Systems Constitutional: + chills, + fatigue, + fever, + sweats Respiratory: No cough, No shortness of breath Male : + nocturia more than once/night, + urinary frequency, No hematuria, No incontinence Heme: + night sweats Endo: + fatigue Objective Vital Signs Date Time Temp Pulse Resp B/P Pulse Ox O2 Delivery O2 Flow Rate FiO2 10/27/16 08:00 Room Air 10/27/16 00:33 38.1 97 20 119/73 92 Room Air 10/27/16 00:00 Room Air 10/26/16 22:31 36.9 10/26/16 16:09 37.4 104 20 135/78 92 Room Air 10/26/16 16:05 92 Room Air Physical Exam General Appearance: WD/WN, no apparent distress, + obese ENT: hearing grossly normal Neck: no JVD, trachea midline Extremities: non-tender, normal inspection, no pedal edema Neurologic/Psychiatric: alert, normal mood/affect, oriented x 3 Skin: normal color, warm/dry, no rash Laboratory Results Last 24 Hours Test 10/27/16 07:16 White Blood Count 7.76 K/uL Red Blood Count 4.17 M/uL Hemoglobin 11.4 g/dL Hematocrit 35.6 % Mean Corpuscular Volume 85.4 fL Mean Corpuscular Hemoglobin 27.3 pg Mean Corpuscular Hemoglobin Concent 32.0 g/dl Platelet Count 194 K/uL Mean Platelet Volume 9.0 fL Neutrophils (%) (Auto) 80.3 % Lymphocytes (%) (Auto) 5.8 % Monocytes (%) (Auto) 12.4 % Eosinophils (%) (Auto) 0.9 % Basophils (%) (Auto) 0.3 % Neutrophils # (Auto) 6.24 K/uL Lymphocytes # (Auto) 0.45 K/uL Monocytes # (Auto) 0.96 K/uL Eosinophils # (Auto) 0.07 K/uL Basophils # (Auto) 0.02 K/uL RDW Standard Deviation 47.8 fL RDW Coefficient of Variation 15.2 % Immature Granulocyte % (Auto) 0.3 % Immature Granulocyte # (Auto) 0.02 K/uL Sodium Level 142 mmol/L Potassium Level 4.2 mmol/L Chloride Level 109 mmol/L Carbon Dioxide Level 28 mmol/L Anion Gap 5.0 mmol/L Blood Urea Nitrogen 8 mg/dl Creatinine 1.00 mg/dl Est Creatinine Clear Calc Drug Dose 73.1 ml/min Estimated GFR () 86.8 Estimated GFR (Non- 74.9 BUN/Creatinine Ratio 8.4 Random Glucose 97 mg/dl Calcium Level 8.4 mg/dl Magnesium Level 2.4 mg/dl Assessment and Plan uti with bacteremia we plan stent removal today home on keflex tid to complete 14 days Therapy started 10/24/16 I'll see him in about 3 weeks to check a urine test of cure. Urology procedure note Pre-op diagnosis- right ureteral stent post-op diagnosis- same procedure ; cysto right stent removal surgeon: tamara lopez none dirty case (UTI) on ceftriaxone abt ebl- 0mL fluids: 25mL saline complications- none anesthesia- none Findings- cloudy debris on stent Description of Procedure: Patient was placed supine on hospital bed in supine position. His genitals were prepped and draped in sterile fashion. Time out held with team. I placed an 18 fr flexible cystoscope to bladder. The urethra is unremarkable. The prostate is trilobar occlusive. The UOs are normal. There is mild cloudy debris on stent I grasped right stent easily with flexible grasper and removed scope and stent. He tolerate procedure well. Plan: Home today or tomorrow Pyridium for dysuria x 3 days keflex tid for 10 more days oral pain meds as needed
[2016-10-27] MEDS: CEFTRIAXONE SOD INJ 2,000 MG in DEXTROSE 5% 50ML 50 ML IV SCH (11:51)
[2016-10-27] MEDS ORDERED: CEPH500C2 PO (12:30)
[2016-10-27] MEDS ORDERED: LCTX PO (12:30)
--- NOTE | 2016-10-27 12:33 | Discharge Instructions ---
Discharge Instructions Date of Service Oct 27, 2016. Admission Reason for Admission: Bacteremia Discharge Discharge Diagnosis / Problem: pyelonephritis, bacteremia Discharge Goals Goal(s): Decrease discomfort, Improve function Activity Recommendations Activity Limitations: resume your previous activity . Instructions / Follow-Up Instructions / Follow-Up FOLLOWUP WITH FAMILY DOCTOR IN ONE WEEK FOLLOWUP WITH UROLOGY SCHEDULED IN 1-2 WEEKS. REPORT TO ER FOR ANY CHANGE IN MEDICAL CONDITION. Current Hospital Diet Patient's current hospital diet: AHA Diet (Heart Healthy) Discharge Diet Recommended Diet: AHA Diet (Heart Healthy) Pending Studies Studies pending at discharge: no Medical Emergencies . Who to Call and When: Medical Emergencies: If at any time you feel your situation is an emergency, please call 911 immediately. . Non-Emergent Contact Non-Emergency issues call your: Primary Care Provider Call Non-Emergent contact if: temperature is above 100.5 . . "Provider Documentation" section prepared by Jonathan Watson. VTE Core Measure Inpt VTE Proph given/why not?: SCD's
[2016-10-27 13:26] VITALS: BP 119/73; PULSE 97; TEMP 38.1; O2SAT 92
--- NOTE | 2016-10-27 18:49 | Progress Note ---
Internal Med Progress Note Date of Service: Oct 27, 2016. Provider Documentation: SUBJECTIVE: resting comfortably no pain no sob had temp spike i middle of night but none since then wants to go home OBJECTIVE: Vital Signs-as noted below Exam: General-alert and oriented x 3 ENT-normal hearing Neck-no neck masses Lungs-cta b/l no wheezing no crackles Heart-s1 and s2 heard regular rate and rhythm no murmurs' Abdomen-soft bowel sounds present no abdominal discomfort no distension Extremities-no edema no erythema Neuro-alert and awake moves extremities Lab data as noted below. ASSESSMENT & PLAN: SEPSIS DUE TO GRAM NEGATIVE BACTEREMIA patient recently underwent cystoscopy, lithotripsy, and right ureteral stent placement on 10/19 for renal calcul, developed chills and rigors on 10/24/16 went to [facility] ER and was febrile, was given IV Rocephin and discharged home with prescription for Keflex but Blood cultures were positive today for gram negative rods and urine culture growing E. Coli (no sensitivities) - currently on iv zosyn await final cx from [facility]-urias sensitive e.coli urology on board and stent taken out today 10/27/16 ID recommended 14 days of keflex 500mg po tid HLD om statin GERD PPI discharged home Vital Signs: Date Time Temp Pulse Resp B/P Pulse Ox O2 Delivery O2 Flow Rate FiO2 10/27/16 13:26 38.1 97 20 92 Room Air 10/27/16 08:00 Room Air 10/27/16 00:33 38.1 97 20 119/73 92 Room Air 10/27/16 00:00 Room Air 10/26/16 22:31 36.9 Lab Results: Results Past 24 Hours Test 10/27/16 07:16 Range/Units White Blood Count 7.76 4.8-10.8 K/uL Red Blood Count 4.17 4.7-6.1 M/uL Hemoglobin 11.4 14.0-18.0 g/dL Hematocrit 35.6 42-52 % Mean Corpuscular Volume 85.4 80-100 fL Mean Corpuscular Hemoglobin 27.3 25-34 pg Mean Corpuscular Hemoglobin Concent 32.0 32-36 g/dl Platelet Count 194 130-400 K/uL Mean Platelet Volume 9.0 7.4-10.4 fL Neutrophils (%) (Auto) 80.3 % Lymphocytes (%) (Auto) 5.8 % Monocytes (%) (Auto) 12.4 % Eosinophils (%) (Auto) 0.9 % Basophils (%) (Auto) 0.3 % Neutrophils # (Auto) 6.24 1.4-6.5 K/uL Lymphocytes # (Auto) 0.45 1.2-3.4 K/uL Monocytes # (Auto) 0.96 0.11-0.59 K/uL Eosinophils # (Auto) 0.07 0-0.5 K/uL Basophils # (Auto) 0.02 0-0.2 K/uL RDW Standard Deviation 47.8 36.4-46.3 fL RDW Coefficient of Variation 15.2 11.5-14.5 % Immature Granulocyte % (Auto) 0.3 % Immature Granulocyte # (Auto) 0.02 0.00-0.02 K/uL Sodium Level 142 136-145 mmol/L Potassium Level 4.2 3.5-5.1 mmol/L Chloride Level 109 98-107 mmol/L Carbon Dioxide Level 28 21-32 mmol/L Anion Gap 5.0 3-11 mmol/L Blood Urea Nitrogen 8 7-18 mg/dl Creatinine 1.00 0.60-1.40 mg/dl Est Creatinine Clear Calc Drug Dose 73.1 ml/min Estimated GFR () 86.8 Estimated GFR (Non- 74.9 BUN/Creatinine Ratio 8.4 10-20 Random Glucose 97 70-99 mg/dl Calcium Level 8.4 8.5-10.1 mg/dl Magnesium Level 2.4 1.8-2.4 mg/dl
--- NOTE | 2016-10-27 18:51 | Discharge Summary ---
Discharge Summary Date of Service Oct 27, 2016. Discharge Summary Admission Date: Oct 25, 2016 at 11:44 Discharge Date: Oct 27, 2016 Discharge Disposition: Home Principal Diagnosis: sepsis bacteremia uti Secondary Diagnoses/Problems: (1) B-cell lymphoma Permanent Comment: Pelvic pain Finding of soft tissue mass of the right pelvis, presacral region Status post fine-needle aspiration consistent with B-cell lymphoma Status post completion of radiation therapy 03/12/2013 received 4140 cGy Status: Resolved (2) Dyslipidemia Status: Chronic (3) GERD (gastroesophageal reflux disease) Status: Chronic (4) Renal calculi Status: Chronic Consultations: UROLOGY ID Medication Reconciliation New Medications: Cephalexin Monohydrate (Keflex) 500 Mg Cap 500 MG PO TID for 14 Days, #42 CAP Lactobacillus Acidophilus (Lactinex) Tab 2 TAB PO TID for 15 Days, TAB Continued Medications: Aspirin (Aspirin Chewable) 81 Mg Chew 81 MG PO DAILY, TAB Bimatoprost (Lumigan) 0.01 % Brinda 1 DROP OPB HS Brinzolamide Oph (Azopt Oph) 1 % Delia 1 DROP OPB TID, BTL Clotrimazole W/ Betamethasone (Lotrisone) 1 Cre Cre 1 APPLN TOP BID PRN for Itching for 7 Days, #30 GM 1 Refill Dexlansoprazole (Dexilant) 60 Mg Cap 60 MG PO DAILYBB Ferrous Sulfate (Kp Ferrous Sulfate) 325 Mg Tab 1 TAB PO DAILY for 30 Days, #30 TAB 3 Refills Gabapentin (Gabapentin) 100 Mg Cap 100 MG PO TID Hydrocodone-Acetaminophen (Lortab 5-325 mg) 1 Tab Tab 1 TAB PO Q6H PRN for Pain Phenazopyridine Hcl (Pyridium) 100 Mg Tab 1 TAB PO TID PRN for Pain for 3 Days, #9 TAB Pilocarpine Hcl (Isopto Carpine) 1 % Brinda 1 DROP IO QID Polyethylene Glycol 3350 (Miralax) 1 Pow Pow 17 GM PO DAILY PRN for Constipation, #527 GM Psyllium (Metamucil Powder) Powd 1 PACK PO DAILY, PACK Simvastatin (Zocor) 40 Mg Tab 40 MG PO QPM, TAB Tamsulosin Hcl (Flomax) 0.4 Mg Cap 0.4 MG PO DAILY, CAP Timolol Maleate 0.25% Oph (Timoptic 0.25% Oph) Soln 1 DROP OPL DAILY, BTL Admission Information HPI (per Admitting provider): 71 year old male referred to the hospital for direct admission by Dr. Herrmann from urology for bacteremia. On 10/19, patient underwent cystoscopy, lithotripsy , and right ureteral stent placement. Last evening patient developed chills and rigors. He was seen at [facility] where he found to be febrile and U/A consistent with UTI. He was given a dose of IV Rocephin and discharged home with a prescription for Keflex. Patient received a call this morning that he had an infection in his blood and needed to go to the hospital. Patient reports feeling significantly better since last evening. He still has some chills but rigors have resolved. He reports burning with urination. He had hematuria after his procedure last week however urine has cleared. He denies flank pain. No abdominal pain, nausea, vomiting, or diarrhea. He denies chest pain and shortness of breath. No lightheadedness, dizziness, diaphoresis, or syncopal events. At the time of my exam, patient is resting in bed in no acute distress. Physical Exam (per Admitting): General Appearance: no apparent distress Head: normocephalic Eyes: normal inspection ENT: hearing grossly normal Neck: supple, no JVD Respiratory/Chest: lungs clear, normal breath sounds, no respiratory distress Cardiovascular: regular rate, rhythm, no edema, normal peripheral pulses Abdomen/GI: normal bowel sounds, non tender, soft Back: no CVA tenderness Extremities/Musculoskelatal: normal inspection, no calf tenderness Neurologic/Psych: no motor/sensory deficits, alert, normal mood/affect, oriented x 3 Skin: normal color, warm/dry Hospital Course SEPSIS DUE TO GRAM NEGATIVE BACTEREMIA patient recently underwent cystoscopy, lithotripsy, and right ureteral stent placement on 10/19 for renal calcul, developed chills and rigors on 10/24/16 went to [facility] and was febrile, was given IV Rocephin and discharged home with prescription for Keflex but Blood cultures were positive today for gram negative rods and urine culture growing E. Coli (no sensitivities) - currently on iv zosyn await final cx from [facility] sensitive e.coli urology on board and stent taken out today 10/27/16 ID recommended 14 days of keflex 500mg po tid HLD om statin GERD PPI discharged home Total time spent on discharge = 35MINUTES This includes examination of the patient, discharge planning, medication reconciliation, and communication with other providers. Discharge Instructions Discharge Instructions Date of Service Oct 27, 2016. Admission Reason for Admission: Bacteremia Discharge Discharge Diagnosis / Problem: pyelonephritis, bacteremia Discharge Goals Goal(s): Decrease discomfort, Improve function Activity Recommendations Activity Limitations: resume your previous activity . Instructions / Follow-Up Instructions / Follow-Up FOLLOWUP WITH FAMILY DOCTOR IN ONE WEEK FOLLOWUP WITH UROLOGY SCHEDULED IN 1-2 WEEKS. REPORT TO ER FOR ANY CHANGE IN MEDICAL CONDITION. Current Hospital Diet Patient's current hospital diet: AHA Diet (Heart Healthy) Discharge Diet Recommended Diet: AHA Diet (Heart Healthy) Pending Studies Studies pending at discharge: no Medical Emergencies . Who to Call and When: Medical Emergencies: If at any time you feel your situation is an emergency, please call 911 immediately. . Non-Emergent Contact Non-Emergency issues call your: Primary Care Provider Call Non-Emergent contact if: temperature is above 100.5 . . "Provider Documentation" section prepared by Jonathan Watson. VTE Core Measure Inpt VTE Proph given/why not?: SCD's
== END 2016-10-27 15:05 | disposition home or self-care (01) | DRG 698 ==
LOC: C.MS2W 11:44
PROVIDERS: ADMIT Internal Medicine; ATTEND Internal Medicine
PROC: 0TP98DZ Removal of Intraluminal Device from Ureter, Via Natural or Artificial Opening Endoscopic (ICD-10-PCS; principal; 2016-10-27)
DX: T83.592A Infection and inflammatory reaction due to indwelling ureteral stent, initial encounter (principal); A41.51 Sepsis due to Escherichia coli [E. coli]; N39.0 Urinary tract infection, site not specified; C85.16 Unspecified B-cell lymphoma, intrapelvic lymph nodes; K21.9 Gastro-esophageal reflux disease without esophagitis; E78.5 Hyperlipidemia, unspecified; Z79.899 Other long term (current) drug therapy; Z96.0 Presence of urogenital implants; Y83.1 Surgical operation with implant of artificial internal device as the cause of abnormal reaction of the patient, or of later complication, without mention of misadventure at the time of the procedure